=== PATIENT | male | born 1980 | race Caucasian/White ===

== ENCOUNTER 2021-09-08 13:11 | Emergency (ER) | payer OTHER, SELFPAY ==
[2021-09-08 14:00] VITALS: BP 143/78; PULSE 64; RESP 18; TEMP 36.6; O2SAT 96; BMI 28.5
[2021-09-08] MEDS: Lidocaine HCl 1 % MPF 5 ML VIAL SUBCUT (16:15)
--- NOTE | 2021-09-08 16:23 | ED.WOUNDLAC ---
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 He denies any other injury complaints or concerns at this time. Reports that he had his tetanus a few years ago he does not need updated again. Onset (ago): minute(s) (Prior to arrival) Extremity Location: left: hand (Thumb) Place: work Patient tetanus UTD: Yes Context: accidental Associated symptoms: none Treatments prior to arrival: bandage Related Data Previous Rx's Medication Instructions Recorded acetaminophen 500 mg tablet 1,000 mg PO QID PRN #14 tab 09/08/21 (Tylenol Extra Strength) cephalexin 500 mg capsule 500 mg PO Q6H 10 Days #40 cap 09/08/21 ibuprofen 800 mg tablet 800 mg PO Q8H PRN #14 tab 09/08/21 Allergies Allergy/AdvReac Type Severity Reaction Status Date / Time No Known Allergies Allergy Unverified 07/23/20 14:49 Review of Systems Review of Systems: Constitutional : No Fever, No Chills, Cardiovascular : No Chest Pain, No SOB Respiratory : No Dyspnea Gastrointestinal : No abdominal pain Musculoskeletal : No Joint Swelling Skin : positive skin laceration, No Foreign bodies, No rash, No surrounding erythema Neuro : No Weakness, No Numbness/tingling Psych : No SI/HI/thoughts of self injury Yes all other systems are reviewed and are negative REPLACED BY [facility] Past Medical History Attestation statement: The following information was validated with the patient. Social History Social History Advance Directives: No Advance Directives Information Provided: No Physical Exam Vital Signs: Vital Signs: Last Vital Signs Temp 98 F 09/08/21 14:00 Pulse 64 09/08/21 14:00 Resp 18 09/08/21 14:00 BP 143/78 H 09/08/21 14:00 Pulse Ox 96 09/08/21 14:00 Body Mass Index 28.5 vital signs have been reviewed as normal and appeared to be correct. Blood pressure hypertensive 143/78 Heart rate normal. Respiration rate normal. Temperature normal. Oxygen saturation normal. Appearance: Alert. Oriented X3. No acute distress. Head: Normal external exam. Normocephalic. Atraumatic. Eyes: PERRLA. EOMI. Conjunctiva and sclera normal. Eyelids normal. ENT: Pharynx normal. Uvula midline. Moist mucous membranes. Neck: Normal inspection. Neck supple. FROM. CVS: Normal heart rate and rhythm. Respiratory: No respiratory distress. Painless inspiration. Skin: Skin warm and dry. Normal skin color. Normal skin turgor. No rashes/lesions noted. Extremities: To the left thumb at the distal radial aspect near the nail there is a 2 cm intermediate laceration does not and involve the nail or the nail bed. There are no foreign bodies. No obvious tendon or ligament injury noted. Patient has full range of motion of the finger. No signs of infection. Otherwise all other Extremities exhibit normal range of motion and nontender. Neuro: Oriented X 3. No motor deficit. No sensory deficit. Reflexes normal. Normal steady gait. No focal neuro deficits noted. Vascular: + radial pulses/+ 2 distal pedal pulses/+2 dorsalis pedis b/l. Normal cap refill. No cyanosis noted to upper extremity nails and lower extremity toes nails. Course Course Course Narrative: 40-year-old male presenting to the ED with complaints of a laceration that occurred at work prior to arrival while he was cutting cheese at work and sustained a laceration to his left thumb. His tetanus is updated. Patient now status post laceration repair with 5 sutures placed. Patient tolerated procedure well. No complications. Will instruct to return in 10 days for suture removal and to follow up work connection will also DC home with Keflex Motrin and Tylenol and to return if any new or worsening symptoms. Patient understands agrees with this plan. [facility] - Wound/Laceration Medical Records Attestation: I reviewed the patient's medical records. Procedures Laceration Laceration 1: Site: hand (Thumb) Side (If applicable): left Size (cm): 2 Description: linear Depth: simple, single layer Local Anesthetic: lidocaine 1% Amount of anesthesia used (mL): 3 Pre-repair: wound explored, irrigated extensively and deep structures intact Skin layer closed with: nylon Size (cm): 5-0 Number of sutures: 5 Technique: simple, interrupted Discharge Plan Discharge Clinical Impression: Laceration, Work related injury Patient Disposition: Home, Self-Care Instructions: Finger Laceration (ED), Return to Work Instructions (ED) Prescriptions: New ibuprofen 800 mg tablet 800 mg PO Q8H PRN (Reason: pain) Qty: 14 RF: 0 acetaminophen [Tylenol Extra Strength] 500 mg tablet 1,000 mg PO QID PRN (Reason: fever or pain) Qty: 14 RF: 0 cephalexin 500 mg capsule 500 mg PO Q6H 10 Days Qty: 40 RF: 0 Referrals: [facility] [Provider Group] - 2 days Teagan James PA [Emergency Midlevel Provider] - 10 days (For suture removal) Stand Alone Forms: Work/School Release Print Language: [place]
== END 2021-09-08 16:37 | disposition home or self-care (01) ==
PROVIDERS: Emergency Provider Emergency Medicine
DX: S61.012A Laceration without foreign body of left thumb without damage to nail, initial encounter (principal); W26.0XXA Contact with knife, initial encounter; Y93.G1 Activity, food preparation and clean up; Y92.9 Unspecified place or not applicable; Y99.0 Civilian activity done for income or pay
CPT/HCPCS: 12001; 99283; 99284